=== PATIENT | male | born 2005 | race Hispanic/Latino ===

== ENCOUNTER 2024-07-16 22:12 | Inpatient (IN) | payer OTHER, SELFPAY ==
[2024-07-16 22:30] LABS: Actual Bicarbonate (HCO3a) 16.7 mEq/L (22-28); Analyzer IN Cardio ER; Base Excess (BEa) -8.2 mEq/L (-2.0 to +3.0); CO2 Tension 32.7 mmHg (35.0-45.0); Carboxyhemoglobin (COHb) 0.3 gm% (0.0-3.0); Hematocrit-ABG 43 % (42.0-52.0); Hemoglobin (Hb) 14.7 g/dL (11.4-15.4); O2 Tension (PaO2), arterial 535.8 mmHg (80.0-100.0); pH, Arterial 7.325 (7.35-7.45)
[2024-07-16 22:30] LABS: #Basophils Less than 0.03 10x3/uL (0.0-0.2); %Basophils 0.3 % (0.0-1.0); %Eosinophils 1.2 % (0.0-10.0); %Lymphocytes 35.1 % (28.0-48.0); %Monocytes 6.1 % (0.0-4.0); %Neutrophils 56.9 % (31.0-61.0); Hematocrit 40.3 % (42.0-52.0); Hemoglobin 14.2 g/dL (14.0-18.0); Mean Corpuscular HGB CONC 35.2 g/dL (32.0-36.0); Mean Corpuscular Hemoglobin 32.1 pg (25.0-35.0); Mean Corpuscular Volume 91.2 fL (78.0-98.0); Mean Platelet Volume 10.4 fL (7.4-10.4); Platelet Count 153 10x3/uL (130-400); RBC Distribution Width 12.6 % (11.5-14.5); Red Blood Cell (RBC) Count 4.42 mill/uL (4.00-5.20)
[2024-07-16 22:35] LABS: Puncture Site Right Radial artery
[2024-07-16 22:36] LABS: ALV-art Gradient 136.325 mmHg (0-20)
[2024-07-16 22:45] LABS: ALT (SGPT) 23 U/L (Less than 45); AST (SGOT) 36 U/L (11-34); Albumin 3.9 g/dL (3.1-4.5); Alkaline Phosphatase 114 U/L (50-130); Anion Gap 19 mmol/L (10-20); BUN (Urea Nitrogen) 14 mg/dL (8.9-20.6); Bilirubin, Total 0.8 mg/dL (0.3-1.2); Calc. Creatinine Clearance 0 mL/min (70-130); Calcium 8.5 mg/dL (7.8-10.44); Carbon Dioxide 16 mmol/L (22-29); Chloride 106 mmol/L (98-107); Estimated GFR 129; Globulin 2.8 g/dL (2.4-3.5); Glucose 185 mg/dL (70-105); Potassium 2.8 mmol/L (3.5-5.1); Protein, Total 6.7 g/dL (6.0-8.3); Sodium 138 mmol/L (136-145)
[2024-07-16] MEDS ORDERED: CEFAZOLIN 2 GM VIAL ONE (22:53)
[2024-07-16] MEDS ORDERED: Lidocaine 4% Topical Sol 50 ML BOT ONE (22:57)
[2024-07-16] MEDS ORDERED: Sodium Chloride 3% 500 ML IVPB SCH (23:00)
[2024-07-16] MEDS ORDERED: Propofol 1,000 MG/100 ML VIAL IV ONE (23:12)
[2024-07-16] MEDS ORDERED: EPINEPHrine 1 MG/ML VIAL ONE (23:27)
[2024-07-16] MEDS ORDERED: Lidocaine 1% (PF) 30 ML VIAL ONE (23:28)
[2024-07-16] MEDS ORDERED: Thrombin 5000 UNITS/5 ML VIAL ONE (23:28)
[2024-07-16] MEDS ORDERED: Vancomycin 1 GM VIAL ONE (23:28)
[2024-07-16] MEDS ORDERED: Propofol BOLUS 1,000 MG/100 ML VIAL IV PRN (23:45)
[2024-07-16] MEDS ORDERED: Morphine 2 MG/ML VIAL SLOW IVP PRN (23:45)
[2024-07-16] MEDS ORDERED: Ventilator Sedation Protocol 1 EACH FS SCH (23:45)
[2024-07-16] MEDS ORDERED: Fentanyl BOLUS 250 ML IVPB PRN (23:45)
[2024-07-16] MEDS ORDERED: Dextrose 5% in Water 1,000 ML IV PRN (23:46)
[2024-07-16] MEDS ORDERED: Glucagon 1 MG/ML KIT IM PRN (23:46)
[2024-07-16] MEDS ORDERED: Dextrose 50% Abboject 50 ML SYRINGE SLOW IVP PRN (23:46)
[2024-07-17] MEDS ORDERED: Electrolyte Replacement Protocol 1 EACH FS SCH (00:01)
[2024-07-17] MEDS ORDERED: Rocuronium Bromide 10 MG/ML (10ML VIAL) ONE (00:30)
[2024-07-17] MEDS ORDERED: Esmolol 100 MG/10 ML VIAL ONE (00:30)
[2024-07-17] MEDS ORDERED: Vasopressin 20 UNITS/ML VIAL ONE (00:44)
[2024-07-17] MEDS ORDERED: ePHEDrine Sulfate 50 MG/10 ML VIAL ONE (00:48)
[2024-07-17] MEDS ORDERED: ePHEDrine 50 MG/ML VIAL ONE (00:48)
[2024-07-17] MEDS ORDERED: Norepinephrine 4 MG/4 ML VIAL ONE ×2 (00:48→00:54)
[2024-07-17] MEDS ORDERED: Bacitracin Zinc Ointment 30 gm TUBE ONE (01:20)
[2024-07-17 01:30] LABS: Bacteria/HPF None Seen HPF (None Seen); Bilirubin Negative (Negative); Blood, Urine Negative (Negative); CAUTI Indications for Culture Alt mental st,lethar; Clarity Clear (Clear); Glucose, Urine (Dipstick) 30 mg/dL (Negative); Ketone, Urine Negative (Negative); Leukocyte Negative Leu/uL (Negative); Nitrite Negative (Negative); Protein, Urine (Dipstick) 10 mg/dL (Neg-Trace); RBC/HPF 0-3 HPF (0-3); Squamous Epithelial 0-3 HPF (0-3); Urobilinogen Normal mg/dL (Less than 2); WBC/HPF 0-3 HPF (0-3); pH, Urine 6.5 (5.0-9.0)
[2024-07-17 01:32] LABS: Urine Culture Reflex No No
[2024-07-17] MEDS: Fentanyl CADD 100 ML IV SCH (02:39)
[2024-07-17 02:44] VITALS: BMI 25.0
[2024-07-17] MEDS: Sodium Chloride 0.9% 1,000 ML IV SCH (03:05)
[2024-07-17] MEDS: Potassium Chloride 40 MEQ in Premix 1 BAG IVPB SCH ×2 (03:05→08:27)
[2024-07-17 03:19] LABS: #Basophils 0.04 10x3/uL (0.0-0.2); #Eosinophils Less than 0.03 10x3/uL (0.0-0.7); %Basophils 0.2 % (0.0-1.0); %Lymphocytes 8.1 % (28.0-48.0); %Neutrophils 84.4 % (31.0-61.0); Hematocrit 22.9 % (42.0-52.0); Hemoglobin 7.7 g/dL (14.0-18.0); Mean Corpuscular HGB CONC 33.6 g/dL (32.0-36.0); Mean Corpuscular Hemoglobin 32.1 pg (25.0-35.0); Mean Corpuscular Volume 95.4 fL (78.0-98.0); Mean Platelet Volume 10.5 fL (7.4-10.4); Platelet Count 137 10x3/uL (130-400); RBC Distribution Width 12.5 % (11.5-14.5)
[2024-07-17] MEDS: Calcium Chloride 1 GM/10 ML Abboject SYRINGE ONE (03:47)
[2024-07-17] MEDS: Sodium Bicarb 50 MEQ/50 ML Abboject 8.4% SYRINGE ONE (03:47)
[2024-07-17] MEDS: Phenylephrine 40 MG/NS 250 ML 250 ML IVPB SCH (03:56)
[2024-07-17] MEDS: NOREPINEPHRINE 8 MG/250 ML-D5W 250 ML ONE (03:56)
[2024-07-17] MEDS ORDERED: NOREPINEPHRINE 8 MG/250 ML-D5W 250 ML IVPB SCH (04:00)
[2024-07-17] MEDS ORDERED: CALCIUM GLUC 1 GM/NS 50 ML 1 GM in Premix 1 BAG IVPB SCH (04:00)
[2024-07-17] MEDS ORDERED: Vasopressin In 0.9 % NaCl 40 UNIT in Premix 1 BAG IV SCH ×2 (04:00→20:15)
[2024-07-17] MEDS ORDERED: Vasopressin 20 UNITS in Sodium Chloride 0.9% 50 ML IV SCH (04:00)
[2024-07-17 04:18] LABS: ALT (SGPT) 16 U/L (Less than 45); AST (SGOT) 35 U/L (11-34); Albumin 2.2 g/dL (3.1-4.5); Alkaline Phosphatase 73 U/L (50-130); Anion Gap 16 mmol/L (10-20); BUN (Urea Nitrogen) 12 mg/dL (8.9-20.6); Bilirubin, Total 0.6 mg/dL (0.3-1.2); Calc. Creatinine Clearance 105 mL/min (70-130); Calcium 7.1 mg/dL (7.8-10.44); Carbon Dioxide 14 mmol/L (22-29); Chloride 109 mmol/L (98-107); Estimated GFR 104; Globulin 1.5 g/dL (2.4-3.5); Glucose 457 mg/dL (70-105); Potassium 2.9 mmol/L (3.5-5.1); Protein, Total 3.7 g/dL (6.0-8.3); Sodium 136 mmol/L (136-145)
[2024-07-17] MEDS: Calcium Chloride 1 GM/10 ML Abboject SYRINGE IVP SCH (04:43)
[2024-07-17] MEDS: Sodium Bicarb 50 MEQ/50 ML Abboject 8.4% SYRINGE IVP SCH (04:43)
[2024-07-17] MEDS: Insulin Lispro 100 UNIT/ML 10 ML VIAL SC PRN (04:54)
[2024-07-17] MEDS ORDERED: Insulin Lispro 100 UNIT/ML 10 ML VIAL SC PRN (06:16)
[2024-07-17 07:37] LABS: #Basophils Less than 0.03 10x3/uL (0.0-0.2); #Eosinophils Less than 0.03 10x3/uL (0.0-0.7); %Basophils 0.1 % (0.0-1.0); %Lymphocytes 3.4 % (28.0-48.0); %Neutrophils 86.8 % (31.0-61.0); Hemoglobin 11.5 g/dL (14.0-18.0); Mean Corpuscular HGB CONC 35.9 g/dL (32.0-36.0); Mean Corpuscular Volume 86.3 fL (78.0-98.0); Mean Platelet Volume 11.1 fL (7.4-10.4); Platelet Count 86 10x3/uL (130-400); RBC Distribution Width 13.8 % (11.5-14.5); Red Blood Cell (RBC) Count 3.71 mill/uL (4.00-5.20)
[2024-07-17 08:04] LABS: Actual Bicarbonate (HCO3a) 18.7 mEq/L (22-28); Base Excess (BEa) -4.8 mEq/L (-2.0 to +3.0); CO2 Tension 30.1 mmHg (35.0-45.0); Calcium, Ionized (arterial) 1.19 mmol/L (1.12-1.30); Carboxyhemoglobin (COHb) 0.6 gm% (0.0-3.0); Hematocrit-ABG 36 % (42.0-52.0); Hemoglobin (Hb) 12.2 g/dL (11.4-15.4); O2 Tension (PaO2), arterial 165.3 mmHg (80.0-100.0); Potassium - ABG Lab 4.33 mmol/L (3.70-5.30); pH, Arterial 7.412 (7.35-7.45)
[2024-07-17 08:07] LABS: Amphetamine Not Detected (NotDetected); Barbiturates Screen Not Detected (NotDetected); Benzodiazepine Screen Not Detected (NotDetected); Cocaine Metabolite Screen Not Detected (NotDetected); Methadone Not Detected (NotDetected); Methamphetamine Not Detected (NotDetected); Opiate Screen Not Detected (NotDetected); Oxycodone Screen Not Detected (NotDetected); Phencyclidine (PCP) Not Detected (NotDetected); THC/Cannabinoid Screen Not Detected (NotDetected); Tricyclic Screen Not Detected (NotDetected)
[2024-07-17 08:10] LABS: ALV-art Gradient 82.275 mmHg (0-20); Puncture Site Arterial Line
[2024-07-17] MEDS: Famotidine/PF 20 mg/2ml Vial SLOW IVP SCH (08:28)
[2024-07-17 08:39] LABS: Burr Cells SLIGHT = 2-5 cells HPF (0-1); Platelet Adequacy Comment Platelets Decreased
[2024-07-17 08:59] LABS: Hematocrit 31.9 % (42.0-52.0); Hemoglobin 11.6 g/dL (14.0-18.0); Mean Corpuscular HGB CONC 36.4 g/dL (32.0-36.0); Mean Corpuscular Hemoglobin 31.2 pg (25.0-35.0); Mean Corpuscular Volume 85.8 fL (78.0-98.0); Mean Platelet Volume 11.2 fL (7.4-10.4); Platelet Count 90 10x3/uL (130-400); RBC Distribution Width 13.8 % (11.5-14.5); Red Blood Cell (RBC) Count 3.72 mill/uL (4.00-5.20)
[2024-07-17 09:28] LABS: Anion Gap 14 mmol/L (10-20); BUN (Urea Nitrogen) 11 mg/dL (8.9-20.6); Calc. Creatinine Clearance 112 mL/min (70-130); Calcium 8.7 mg/dL (7.8-10.44); Carbon Dioxide 25 mmol/L (22-29); Chloride 110 mmol/L (98-107); Estimated GFR 111; Glucose 152 mg/dL (70-105); Potassium 4.5 mmol/L (3.5-5.1); Sodium 144 mmol/L (136-145)
[2024-07-17] MEDS: Lorazepam 2 MG/ML VIAL SLOW IVP PRN (09:39)
[2024-07-17] MEDS: Acetaminophen 650 MG Suppository PR PRN (11:03)
[2024-07-17 12:48] LABS: Hematocrit 28.5 % (42.0-52.0); Hemoglobin 10.4 g/dL (14.0-18.0); Platelet Count 78 10x3/uL (130-400)
[2024-07-17] MEDS: Propofol 1,000 MG/100 ML VIAL IV PRN (17:33)
[2024-07-17 20:22] LABS: Hematocrit 25.3 % (42.0-52.0); Hemoglobin 9.5 g/dL (14.0-18.0); Platelet Count 71 10x3/uL (130-400)
[2024-07-18 02:51] LABS: #Basophils Less than 0.03 10x3/uL (0.0-0.2); #Eosinophils Less than 0.03 10x3/uL (0.0-0.7); %Basophils 0.1 % (0.0-1.0); %Lymphocytes 5.1 % (28.0-48.0); %Monocytes 6.8 % (0.0-4.0); %Neutrophils 87.7 % (31.0-61.0); Hematocrit 28.1 % (42.0-52.0); Hemoglobin 10.1 g/dL (14.0-18.0); Mean Corpuscular HGB CONC 35.9 g/dL (32.0-36.0); Mean Corpuscular Hemoglobin 30.5 pg (25.0-35.0); Mean Corpuscular Volume 84.9 fL (78.0-98.0); Mean Platelet Volume 10.9 fL (7.4-10.4); Platelet Count 76 10x3/uL (130-400); RBC Distribution Width 14.5 % (11.5-14.5); Red Blood Cell (RBC) Count 3.31 mill/uL (4.00-5.20)
[2024-07-18 03:22] LABS: ALT (SGPT) 25 U/L (Less than 45); AST (SGOT) 55 U/L (11-34); Albumin 3.2 g/dL (3.1-4.5); Alkaline Phosphatase 70 U/L (50-130); Anion Gap 12 mmol/L (10-20); BUN (Urea Nitrogen) 12 mg/dL (8.9-20.6); Calc. Creatinine Clearance 141 mL/min (70-130); Calcium 9.4 mg/dL (7.8-10.44); Carbon Dioxide 20 mmol/L (22-29); Estimated GFR 130; Globulin 3.1 g/dL (2.4-3.5); Glucose 162 mg/dL (70-105)
[2024-07-18 03:28] LABS: Bilirubin, Total 2.3 mg/dL (0.3-1.2); Chloride 128 mmol/L (98-107); Potassium 4.2 mmol/L (3.5-5.1); Protein, Total 6.3 g/dL (6.0-8.3); Sodium 156 mmol/L (136-145)
[2024-07-18] MEDS: Desmopressin Acetate 4 mcg/ml AMPUL IVP SCH (03:57)
[2024-07-18] MEDS: Sodium Chloride 0.9% 1,000 ML IV SCH ×3 (03:58)
[2024-07-18] MEDS: Lactated Ringer's 1,000 ML IV SCH (04:30)
[2024-07-18 06:54] LABS: Actual Bicarbonate (HCO3a) 17.8 mEq/L (22-28); Base Excess (BEa) -4.2 mEq/L (-2.0 to +3.0); Calcium, Ionized (arterial) 1.22 mmol/L (1.12-1.30); Carboxyhemoglobin (COHb) 0.3 gm% (0.0-3.0); Hematocrit-ABG 30 % (42.0-52.0); Hemoglobin (Hb) 10.1 g/dL (11.4-15.4); O2 Tension (PaO2), arterial 103.7 mmHg (80.0-100.0); Potassium - ABG Lab 3.65 mmol/L (3.70-5.30); pH, Arterial 7.494 (7.35-7.45)
[2024-07-18 06:56] LABS: ALV-art Gradient 151.875 mmHg (0-20); CO2 Tension 23.7 mmHg (35.0-45.0); Puncture Site Arterial Line
[2024-07-18] MEDS: Phenylephrine 40 MG/NS 250 ML 40 MG in Premix 1 BAG IVPB SCH (09:51)
[2024-07-18 10:06] LABS: Anion Gap 10 mmol/L (10-20); BUN (Urea Nitrogen) 13 mg/dL (8.9-20.6); Calc. Creatinine Clearance 147 mL/min (70-130); Calcium 8.7 mg/dL (7.8-10.44); Carbon Dioxide 22 mmol/L (22-29); Chloride 128 mmol/L (98-107); Estimated GFR 131; Glucose 132 mg/dL (70-105); Potassium 3.5 mmol/L (3.5-5.1); Sodium 156 mmol/L (136-145)
[2024-07-18] MEDS: Potassium Chloride 20 MEQ in Premix 1 BAG IVPB SCH (11:50)
[2024-07-18] MEDS: Dextrose 5% in Water 1,000 ML IV SCH (18:48)
[2024-07-19] MEDS: NOREPINEPHRINE 8 MG/250 ML-D5W 250 ML IVPB SCH (00:40)
[2024-07-19 05:40] LABS: Hematocrit 27.6 % (42.0-52.0); Hemoglobin 9.4 g/dL (14.0-18.0); Mean Corpuscular HGB CONC 34.1 g/dL (32.0-36.0); Mean Corpuscular Hemoglobin 30.4 pg (25.0-35.0); Mean Corpuscular Volume 89.3 fL (78.0-98.0); Mean Platelet Volume 11.6 fL (7.4-10.4); Platelet Count 56 10x3/uL (130-400); RBC Distribution Width 15.5 % (11.5-14.5); Red Blood Cell (RBC) Count 3.09 mill/uL (4.00-5.20)
[2024-07-19 05:54] LABS: Albumin 2.2 g/dL (3.1-4.5); Chloride 123 mmol/L (98-107); Potassium 3.6 mmol/L (3.5-5.1)
[2024-07-19 05:55] LABS: Calcium 8.9 mg/dL (7.8-10.44); Globulin 2.6 g/dL (2.4-3.5); Glucose 114 mg/dL (70-105); Protein, Total 4.8 g/dL (6.0-8.3)
[2024-07-19 05:56] LABS: Anion Gap 9 mmol/L (10-20); Carbon Dioxide 23 mmol/L (22-29)
[2024-07-19 05:58] LABS: Alkaline Phosphatase 49 U/L (50-130); Bilirubin, Total 0.8 mg/dL (0.3-1.2)
[2024-07-19 05:59] LABS: BUN (Urea Nitrogen) 8 mg/dL (8.9-20.6); Calc. Creatinine Clearance 132 mL/min (70-130); Estimated GFR 129
[2024-07-19 06:01] LABS: ALT (SGPT) 19 U/L (Less than 45); AST (SGOT) 35 U/L (11-34)
[2024-07-19 06:17] LABS: Sodium 151 mmol/L (136-145)
[2024-07-19 07:32] LABS: Band 35 % (5-11); Eosinophils 1 % (0-10); Large Platelets 8.9 % (0-5); Lymphocytes 15 % (28-48); Monocytes 2 % (0-4); Neutrophil 47 % (31-61); Platelet Adequacy Comment Significant Decrease; RBC Morphology Within Normal Limits; Smudge Cells 5.9 %
[2024-07-19 08:40] VITALS: TEMP 97.1
[2024-07-19 11:34] VITALS: BP 103/62
[2024-07-19 15:25] VITALS: BMI 24.2
== END 2024-07-19 18:10 | disposition expired | DRG 25 ==
LOC: EEVIPCON 22:12 → ERS 22:12 → SDC 07-17 00:03 → UNDOADMIN 07-17 01:56 → CCU 07-17 01:56
PROVIDERS: ADMIT Neurological Surgery; ATTEND Neurological Surgery
PROC: 0T9B70Z Drainage of Bladder with Drainage Device, Via Natural or Artificial Opening (ICD-10-PCS; principal; 2024-07-17)
PROC: 0ND Head and Facial Bones, Extraction (ICD-10-PCS; 2024-07-17)
PROC: 00C00ZZ Extirpation of Matter from Brain, Open Approach (ICD-10-PCS; 2024-07-17)
PROC: 0KQ00ZZ Repair Head Muscle, Open Approach (ICD-10-PCS; 2024-07-17)
PROC: 30233N1 Transfusion of Nonautologous Red Blood Cells into Peripheral Vein, Percutaneous Approach (ICD-10-PCS; 2024-07-17)
PROC: 30233L1 Transfusion of Nonautologous Fresh Plasma into Peripheral Vein, Percutaneous Approach (ICD-10-PCS; 2024-07-17)
PROC: 4A133R1 Monitoring of Arterial Saturation, Peripheral, Percutaneous Approach (ICD-10-PCS; 2024-07-17)
PROC: 3E03329 Introduction of Other Anti-infective into Peripheral Vein, Percutaneous Approach (ICD-10-PCS; 2024-07-17)
PROC: 3E033XZ Introduction of Vasopressor into Peripheral Vein, Percutaneous Approach (ICD-10-PCS; 2024-07-17)
PROC: 5A1945Z Respiratory Ventilation, 24-96 Consecutive Hours (ICD-10-PCS; 2024-07-17)
DX: S06.5XAA Traumatic subdural hemorrhage with loss of consciousness status unknown, initial encounter (principal); G93.6 Cerebral edema; S02.91XB Unspecified fracture of skull, initial encounter for open fracture; Y93.89 Activity, other specified; Y92.89 Other specified places as the place of occurrence of the external cause
CPT/HCPCS: 36415; 36416; 36430; 36556; 36600; 51702; 70450; 71045; 72125; 78610; 80053; 80306; 80307; 81001; 82805; 85025; 86850; 86900; 86901; 93005; 93010; 94002; 94003; 96365; 96368; A9521; G0390; J0171; J1815; J2060; J2597; J2704; J3010; J3370; J3480; J3490; J7030; J7070; J7120; P9016; P9048